=== PATIENT | female | born 1945 | race African-American/Black ===

== ENCOUNTER 2018-09-25 05:49 | Inpatient (IN) | payer OTHER ==
[~2018-09-25] VITALS: Ht 175.3 cm; Wt 107.4 kg
--- NOTE | ~2018-09-25 | PATH ---
[facility] [place] [address] PATHOLOGY RPT PROCEDURE Name: SHARDA JOHNSON Room #: 361-P DIS IN M.R.#: [id number] Admission: 09/25/18 Date of : 41 Discharge: 09/28/18 Report #: [id number] Path Case #: [id number] Note [facility] Accession Number: [id number] TESTS RESULT FLAG UNITS REF RANGE LAB Clinician Provided Cytology Information No. of containers..01 Other (Miscellaneous) Source: [A] 01 RUL BAL DIAGNOSIS: [A] 02 RUL BAL SUSPICIOUS FOR MALIGNANCY. THIS INTERPRETATION INCLUDES EVALUATION OF A CELL BLOCK. NORMAL BRONCHIAL CELLS AND MACROPHAGES ARE PRESENT. PULMONARY MACROPHAGES (DUST CELLS) ARE PRESENT. COMMENT; HIGHLY ATYPICAL CELLS PRESENT SUSPICIOUS FOR MALIGNANCY. THIS CASE WAS ALSO REVIEWED BY DR PRETTY MARIN AND DISCUSSED WITH DR KANWAL CHILEL ON 09/30/2018 AT 3PM. Signed out by: 02 Brandon Galeano MD, Pathologist NPI- [id number] Performed by: 01 Sarwat Linder, Kiln Car Unloader ([facility]) Gross description: 01 10ML, PINK, CLOUDY /LCS FLAG LEGEND: L-Low Normal,H-High Normal,LL-Alert Low,HH-Alert High <-Panic Low,>-Panic High,A-Abnormal,AA-Critical Abnormal Performed at: [address] [place] [address] Rios Sow MD, [address] [address] Lori Copeland MD, Specimen Comment: A courtesy copy of this report has been sent to Specimen Comment: [phone]. Specimen Comment: Report sent to Performed at: [address], [place], [place] [address] MD Rios Sow MD Phone: [phone]
--- NOTE | ~2018-09-25 | EKG ---
[address] [address] ELECTROCARDIOGRAM REPORT Name: SHARDA JOHNSON Room #: 361-P ADM IN M.R.#: [id number] Admission: 09/25/18 Attend Phys: Ludwin Allison MD Discharge: Date of : 41 Report #: [id number] THIS REPORT FOR: //name// 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
--- NOTE | ~2018-09-25 | HC ---
[facility] [place] [place] [address] CONSULTATION Name: SHARDA JOHNSON Room #: 361-P [facility] IN M.R.#: [id number] Admission: 09/25/18 Attend Phys: Ludwin Allison MD Discharge: 09/28/18 Date of : 41 Report #: [id number] THIS REPORT FOR: //name// CC: Ludwin Buciosergei WinklerReece HISTORY OF PRESENT ILLNESS: A 73-year-old black female was admitted through the Emergency Room after a fall at home. A subsequent chest x-ray reveals upper lobe lung mass that was not previously detected. She states that she has not had a chest x-ray for some 3-4 years when she was last an inpatient at [facility]. She is a reformed cigarette smoker, who consumed a half a pack per day for approximately 25 years, stopping 4 years ago. She denies any recent weight loss, cough or hemoptysis. She has no pain or masses that she has detected or adenopathy. PAST MEDICAL HISTORY: Significant for hypertension, diabetes, elevated cholesterol. She had previous TIA. Hysterectomy in 1971. She had carotid stenosis. ALLERGIES: None known. MEDICATIONS: As listed on the MFR. SOCIAL HISTORY: She is a nondrinker. Smoking is noted. FAMILY HISTORY: Negative for lung cancer. REVIEW OF SYSTEMS: Negative except as in the history of present illness. PHYSICAL EXAMINATION: GENERAL: Shows an elderly black female. She is responsive and alert. HEENT: Normocephalic. NECK: Supple. CHEST: Clear. LYMPHATICS: Did not reveal any palpable supraclavicular or axillary lymphadenopathy. CARDIOVASCULAR: Normal S1, S2. ABDOMEN: Obese. There is no organomegaly or mass. EXTREMITIES: No clubbing, cyanosis or edema. NEUROLOGIC: No focal localizing signs. SKIN: Normal turgor. IMAGING: Again, shows the large 6 cm right upper lobe lung mass in a reformed smoker. [facility] [address] [place] [address] CONSULTATION Name: SHARDA JOHNSON Room #: [address] [place] [address] [place] 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 PLAN: The patient agrees and understands the plan to undergo bronchoscopy for tissue diagnosis. Full and further recommendations will be made when these results are known. Thanks for asking us to see her with you in consultation and asking me to participate in her care. <ELECTRONICALLY SIGNED> By: Monie Gaona MD 09/29/18 1224 1211 2224 oMnie Gaona MD /nt
--- NOTE | ~2018-09-25 | SPIROMETRY ---
[facility] [address] [address] SPIROMETRY Name: SHARDA JOHNSON Room #: 361-P [facility] IN .R.#: [id number] Admission: 09/25/18 Attend Phys: Ludwin Allison MD Discharge: 09/28/18 Date of : 41 Report #: [id number] THIS REPORT FOR: //name// >> SPIROMETRY: (BTPS) Height: in cm Weight: lbs kg Exam Date: PRE-RX POST-RX PRED BEST %PRED BEST %PRED %CHG FVC LITERS . . . . . . FEV1 LITERS . . . . . . FEV1/FVC % . . . . . . XAJ56-11% L/Sec . . . . . . PEF L/SEC . . . . . . FEF50/FIF50 UNITLESS . . . . . . >> INTERPRETATION/IMPRESSION: CC: Ludwin Newell Spirometric examination revealed moderately severe airflow obstruction. There was significant bronchodilator response. IMPRESSION: Moderately severe airflow obstruction. <ELECTRONICALLY SIGNED> By: Silviano Adams MD 10/07/18 1757 Silviano Adams MD /nt
--- NOTE | ~2018-09-25 | EKG ---
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: ZULMA : 1945 Requested By: Corey Low Order Number: [id number] MD: Frederick Huber Measurements Intervals [place] Rate: 60 P: 63 CT: 147 QRS: 46 QRSD: 92 T: 36 QT: 456 QTc: 456 Interpretive Statements Sinus rhythm Normal tracing Compared to ECG 10/21/2013 20:19:52 No significant changes Electronically Signed On 09-27-2018 8:57:07 CDT by Frederick Huber [email or web address] <ELECTRONICALLY SIGNED> By: Frederick Huber MD, [facility] 09/27/18 0857 1104 1104 Frederick Huber MD, [facility] /EPI
--- NOTE | ~2018-09-25 | HC ---
[facility] [address] [place] [address] CONSULTATION Name: SHARDA JOHNSON Room #: 361-P [facility] IN Olamide.RJoanna#: [id number] Admission: 09/25/18 Attend Phys: Ludwin Allison MD Discharge: 09/28/18 Date of : 41 Report #: [id number] THIS REPORT FOR: //name// CC: Ludwin Tierneyesa Reece DATE OF SERVICE: 09/27/2018 TYPE OF REPORT: Pulmonary consultation. REFERRING PHYSICIAN: Ludwin Allison M.D. REASON FOR CONSULTATION: Abnormal chest CT. HISTORY OF PRESENT ILLNESS: The patient is a 73-year-old -Algerian female who presents to the Emergency Room following a fall. Chest x-ray and CT chest showed a lung mass. A Pulmonary consultation was requested. The patient has smoked most of her life. She states that she quit about a year ago. She has also been treated for hypertension and history of CVA, on chronic anticoagulation. She was in her usual state of health until the day of admission, the patient was found to be weak and fell at home. She did not hurt herself. She stated that the leg buckled. She was then brought to the Emergency Room. Initial evaluation was grossly unremarkable. CT head was grossly unremarkable. Otherwise, the patient denies any recent chest pain, hemoptysis but denies any recent night sweats, chills or weight loss. CT chest does show evidence of right upper lobe lung mass, in the proximal apical segment with a right paratracheal and superior mediastinal adenopathy. The lung mass abuts the superior posterior part of the chest wall. The lung mass itself measured 6.2 x 5.0 x 5.1 cm in diameter. PAST MEDICAL HISTORY: Notable for hypertension, diabetes, hypercholesterolemia, peripheral artery disease with carotid artery stenosis, hysterectomy, TIA and on chronic anticoagulation. ALLERGIES: None noted. HOME MEDICATIONS: Nifedipine, Coumadin, Lipitor, Actos, Prinivil, Zantac, Aleve and Tylenol. FAMILY HISTORY: Noncontributory. [facility] [address] [address] CONSULTATION Name: SHARDA JOHNSON Room #: 361-P [facility] IN M.R.#: [id number] Admission: 09/25/18 Attend Phys: Ludwin Allison MD Discharge: 09/28/18 Date of : 43 Report #: [id number] SOCIAL HISTORY: The patient smoked one pack to half a pack a day for about 25 years, quit about a year ago. She denies any alcohol use. REVIEW OF SYSTEMS: As mentioned above, otherwise 10-point system review negative. PHYSICAL EXAMINATION: GENERAL: She is awake and alert, in no apparent distress. VITAL SIGNS: Temperature is 36.7 degrees Celsius, pulse is 54, respiratory rate is 18, blood pressure 152/47 mmHg and saturation 100% on room air. HEENT: Normocephalic and atraumatic. NECK: Supple, without lymphadenopathy or thyromegaly. CHEST: Breath sounds are good bilaterally without any rales or wheezes. CARDIOVASCULAR: Normal S1 and S2. No murmurs or gallop. There is no JVD. There is no carotid bruit. Pulses are 2+/4+ bilaterally. ABDOMEN: Soft and nontender. No organomegaly or masses felt. GENITOURINARY: Deferred. RECTAL: Deferred. EXTREMITIES: There is no edema, cyanosis or clubbing. RADIOLOGICAL DATA: CT chest as mentioned above. CT head as mentioned above. Echocardiogram was grossly unremarkable. Pulmonary artery pressure measured 52 mmHg. Mild mitral regurgitation. LABORATORY DATA: Sodium 142, potassium 4.2, chloride 109, CO2 of 21, BUN 23 and creatinine is 1.6. Hemoglobin is 8.0, WBC is 12,300, platelets are normal. INR on admission was 2.6. Troponin was mildly elevated. IMPRESSION: 1. Right upper lobe lung mass, mediastinal adenopathy in this 73-year-old -Algerian female. She has smoked most of her life. She had a recent fall. CT head was grossly unremarkable other than encephalomalacia seen in the right centrum semiovale region. Etiology likely bronchogenic carcinoma. 2. Recent fall, weakness. Neurologic appears to have improved. May be another episode of transient ischemic attack (?), appears to be therapeutic on anticoagulation. 3. Renal insufficiency, question of whether this may be acute or chronic. 4. Diabetes mellitus type 2. 5. History of cerebrovascular accident, on chronic anticoagulation. Coumadin has been on hold for anticipated bronchoscopy. 6. Mildly elevated troponin. Echocardiogram noted. 7. Pulmonary hypertension, likely related to underlying chronic obstructive pulmonary disease. No further workup necessary at this time. RECOMMENDATIONS: We will proceed with diagnostic bronchoscopy once INR is less [address] [address] CONSULTATION Name: ALEXSHARDAJOSEPHINE IVERSON Room #: 361-[facility] IN M.R.#: [id number] Admission: 09/25/18 Attend Phys: Ludwin Allison MD Discharge: 09/28/18 Date of : 41 Report #: [id number] than 1.5. Risks and benefits of bronchoscopy were discussed with the patient. Following our discussion, the patient voices understanding and willing to proceed. Thank you for this consultation. <ELECTRONICALLY SIGNED> By: Silviano Adams MD 09/29/18 1844 1550 0227 Silviano Adams MD /nt
--- NOTE | ~2018-09-25 | 2DMMODE ---
[place] [address] [facility] [place] [address] 2 D/M-MODE ECHOCARDIOGRAM Name: SHARDA JOHNSON Room #: 361-P ADM IN M.R.#: [id number] Admission: 09/25/18 Attend Phys: Ludwin Allison MD Discharge: Date of : 41 Date of Service: 09/26/18 0819 Report #: [id number] THIS REPORT FOR: //name// APPROVED REPORT Study performed: 09/25/2018 11:04:41 EXAM: Comprehensive 2D, Doppler, and color-flow Echocardiogram Patient Location: Bedside Room #: 361 Status: on-call BSA: 2.11 HR: 54 bpm BP: 179/69 mmHg Rhythm: NSR Other Information Study Quality: Good Risk Factors: Cardiac Risk Factors: HTN, Hyperlipidemia, DM Indications Elevated Troponin 2D Dimensions IVSd: 11.07 (7-11mm) LVOT Diam: 19.00 (18-24mm) LVDd: 37.61 mm PWd: 11.26 (7-11mm) Ascending Ao: 28.49 (22-36mm) LVDs: 25.19 (25-40mm) Aortic Root: 27.31 mm LV Single Plane 4CH: 71.25 % LV Single Plane 2CH: 63.23 % Biplane EF: 67.4 % Volumes Left Atrial Volume (Systole) Single Plane 4CH: 65.25 mL Single Plane 2CH: 51.27 mL LA ESV Index: 31.00 mL/m2 Aortic Valve AoV Peak Eladio.: 1.50 m/s AO Peak Gr.: 8.94 mmHg LVOT Max P.79 mmHg LVOT Max V: 0.97 m/s BISMARK Vmax: 1.89 cm2 [facility] [address] [place] [address] 2 D/M-MODE ECHOCARDIOGRAM Name: SHARDA JOHNSON IVERSON Room #: 361-[facility] IN ..#: [id number] Admission: 09/25/18 Attend Phys: Ludwin Allison MD Discharge: Date of : 41 Date of Service: 09/26/18 0819 Report #: [id number] Mitral Valve E/A Ratio: 1.6 MV Decel. Time: 286.41 ms MV E Max Eladio.: 0.79 m/s MV A Eladio.: 0.50 m/s MV PHT: 83.06 ms IVRT: 87.66 ms TDI E/Lateral E': 8.78 E/Medial E': 11.29 Medial E' Eladio.: 0.07 m/s Lateral E' Eladio.: 0.09 m/s Pulmonary Valve PV Peak Eladio.: 1.14 m/s PV Peak Gr.: 5.24 mmHg ME End Vmax: 1.44 m/s Pulmonary Vein P Vein S: 0.46 m/s P Vein A: 0.30 m/s P Vein D: 0.43 m/s P Vein A Dur.: 143.0 msec P Vein S/D Ratio: 1.07 Tricuspid Valve TR Peak Eladio.: 3.37 m/s RAP Estimate: 7.00 mmHg TR Peak Gr.: 45.37 mmHg PA Pressure: 52.00 mmHg Left Ventricle The left ventricle is normal size. There is normal LV segmental wall motion. Borderline concentric left ventricular hypertrophy. Left ventricular systolic function is normal. The left ventricular ejection fraction is within the normal range. LVEF is 65-70%. The left ventricular diastolic function is normal. Right Ventricle The right ventricle is normal size. The right ventricular systolic function is normal. Atria The left atrium size is normal. Right atrium is mildly dilated. Aortic Valve The aortic valve is normal in structure. No aortic regurgitation is present. There is no aortic valvular stenosis. [facility] [address] [place] [address] 2 D/M-MODE ECHOCARDIOGRAM Name: SHARDA JOHNSON Room #: 361-P [facility] IN ..#: [id number] Admission: 09/25/18 Attend Phys: Ludwin Allison MD Discharge: Date of : 41 Date of Service: 09/26/18 0819 Report #: [id number] Mitral Valve The mitral valve is normal in structure. Mild mitral regurgitation. No evidence of mitral valve stenosis. Tricuspid Valve The tricuspid valve is normal in structure. Mild tricuspid regurgitation. Pulmonary artery pressure is 52 mmHg. Pulmonic Valve The pulmonary valve is normal in structure. Moderate to severe pulmonic regurgitation. Great Vessels The aortic root is normal in size. IVC is normal in size and collapses >50% with inspiration. Pericardium There is no pericardial effusion. <Conclusion> The left ventricle is normal size. LVEF is 65-70%. The left ventricular diastolic function is normal. The right ventricle is normal size. The left atrium size is normal. Right atrium is mildly dilated. The aortic valve is normal in structure. Mild mitral regurgitation. Mild tricuspid regurgitation. Pulmonary artery pressure is 52 mmHg. Moderate to severe pulmonic regurgitation. There is no pericardial effusion. <ELECTRONICALLY SIGNED> By: Corey Low MD, FACC 09/26/18818 8 8 Corey Low MD, FACC /INF
--- NOTE | ~2018-09-25 | PATH ---
[facility] [address] [place] [address] PATHOLOGY RPT PROCEDURE Name: SHARDA JOHNSON Room #: 361-P DIS IN M.R.#: [id number] Admission: 09/25/18 Date of : 41 Discharge: 09/28/18 Report #: [id number] Path Case #: [id number] Note [facility] Accession Number: [id number] TESTS RESULT FLAG UNITS REF RANGE LAB Clinician Provided Cytology Information No. of containers..01 Other (Miscellaneous) Source: [A] 01 BRONCH BRUSH DIAGNOSIS: [A] 02 BRONCH BRUSH SUSPICIOUS FOR MALIGNANCY. NORMAL BRONCHIAL CELLS AND MACROPHAGES ARE PRESENT. PULMONARY MACROPHAGES (DUST CELLS) ARE PRESENT. COMMENT; HIGHLY ATYPICAL CELLS PRESENT SUSPICIOUS FOR MALIGNANCY. THIS CASE WAS ALSO REVIEWED BY DR. PRETTY MARIN AND DISCUSSED WITH DR. KANWAL CHILEL ON 09/30/2018 AT 3PM. Signed out by: 02 Brandon Galeano MD, Pathologist NPI- [id number] Performed by: 01 Sarwat Linder, Drug Safety Scientist ([facility]) Gross description: 01 20ML, NONE, CLEAR /LCS FLAG LEGEND: L-Low Normal,H-High Normal,LL-Alert Low,HH-Alert High <-Panic Low,>-Panic High,A-Abnormal,AA-Critical Abnormal Performed at: [address] [place] [address] Rios Sow MD, [address] [address] Lori Copeland MD, Specimen Comment: A courtesy copy of this report has been sent to Specimen Comment: [phone]. Specimen Comment: Report sent to Specimen Comment: A duplicate report has been generated due to demographic updates. Performed at: [address], [place], [place] [address] [address] [address] PATHOLOGY RPT PROCEDURE Name: SHARDA JOHNSON Room #: 361-P [facility] IN M.R.#: [id number] Admission: 09/25/18 Date of : 41 Discharge: 09/28/18 Report #: [id number] Path Case #: [id number] MD Rios Sow ME Phone: [phone]
--- NOTE | ~2018-09-25 | O ---
[facility] [address] [place] [address] OPERATIVE REPORT Name: SHARDA JOHNSON Room #: 361-P [facility] IN M.R.#: [id number] Admission: 09/25/18 Attend Phys: Ludwin Allison MD Discharge: 09/28/18 Date of : 43 Report #: [id number] THIS REPORT FOR: //name// CC: Ludwin Newell MD PROCEDURE: Diagnostic bronchoscopy. CLINICAL HISTORY: A 73-year-old female with right upper lobe lung mass. POSTOPERATIVE DIAGNOSIS: Mild mucosal edema involving the right upper lobe. No evidence of endobronchial lesion seen. DESCRIPTION OF PROCEDURE: Following obtained consent and risks and benefits being explained to the patient, which include infection, bleeding, pneumothorax, the procedure performed in the endoscopy suite. The patient received 2% aerosolized lidocaine along with 2 mg of Versed IV, 50 mcg of fentanyl IV. Then, a flexible fiberoptic bronchoscope was then introduced to the right knee without difficulty. The epiglottis was normal. Vocal cords were normal. Trachea was normal, shiela was normal. The right mainstem bronchus, right middle lobe, right lower lobe was normal. Right upper lobe revealed a mild mucosal edema with mild erythema. No evidence of endobronchial lesion seen or obstruction. The left mainstem bronchus, left upper lobe and left lower lobe was normal. Transbronchial brushing was performed x 4. Bronchoalveolar lavage was performed at the proximal apical segment of the right upper lobe. There was minimal bleeding noted. Otherwise, the patient tolerated the procedure well. Vital signs and saturation throughout the study were within normal range. The bronchoalveolar lavage specimen will be sent for cytology. The cytology brushing slides will be sent for pathology. <ELECTRONICALLY SIGNED> By: Silviano Adams MD 09/28/18 1839 1605 1710 Silviano Adams MD /nt
[~2018-09-25 05:49] MED LIST: ALEVE220 M1 PO; AMLODIPINE BESY10 MG PO; AMLODIPINE BESYL5 MG PO; APAP500 PO; ASPIRIN325 PO; ATORVASTATIN CA10 MG PO; COUMADIN 5 MG TA5 M1 PO; ENOXAPARIN100 MG/11 INJECTION; FISH OIL 1,0001 EAC5 PO; GLUCOPHAGE500 MG PO; GLUMETZA500 PO; HYDROCHLOROTHIA25 M1 PO; IBUPROFEN 400400 M1 PO; LIPITOR20 MG PO; LISINOPRIL-HCT1 EAC1 PO; LISINOPRIL10 MG PO; MULTI VITAMIN1 EACH PO; NORVASC10 MG PO; RANITIDINE HCL300 M1 PO; ULTRAM 50MG TAB50 MG PO
[2018-09-25 05:51] VITALS: BP 178/89
[2018-09-25 06:45] LABS: HEMOGLOBIN 9.4 gm/dL (12.0-15.0); MCH 24.2 pg (26.0-34.0)
[2018-09-25 06:46] LABS: URINE BILIRUBIN NEGATIVE (Negative); URINE BLOOD 1+ (Negative); URINE CLARITY CLEAR; URINE COLOR YELLOW; URINE GLUCOSE-RANDOM* NEGATIVE (Negative); URINE KETONES NEGATIVE (Negative); URINE LEUKOCYTES-REFLEX NEGATIVE (Negative); URINE NITRITE-REFLEX NEGATIVE (Negative); URINE PROTEIN (DIPSTICK) 2+ (Negative); URINE UROBILINOGEN 0.2 E.U./dl (0.2-1.0)
[2018-09-25 06:46] LABS: HEMATOCRIT 29.1 % (37.0-47.0); MCHC 32.3 g/dL (28.0-37.0); MCV 74.9 fL (80.0-100.0); PLATELET COUNT 233 thou/uL (150-400); RBC 3.89 mil/uL (4.20-5.00); RDW 20.4 % (10.5-14.5); WBC 12.3 thou/uL (4.0-11.0)
[2018-09-25 06:49] LABS: CREATININE 1.6 mg/dL (0.6-1.0); POTASSIUM 4.2 mmol/L (3.5-5.1)
[2018-09-25 06:54] LABS: CASTS None Seen /LPF (None Seen); SQUAMOUS 0-3 Few /LPF (0-3)
[2018-09-25 06:55] LABS: BACTERIA-REFLEX None Seen /HPF (None Seen); CRYSTALS None Seen /LPF (None Seen); URINE RBC None Seen /HPF (0-2); URINE WBC-REFLEX 0-5 Rare /HPF (0-5)
[2018-09-25 06:58] LABS: TROPONIN-I 0.23 ng/mL (<0.06)
[2018-09-25 08:05] LABS: INR 2.6; PROTIME 26.2 Seconds (9.3-11.4)
[2018-09-25 08:20] LABS: ABSOLUTE NEUTROPHILS 10.6 thou/uL (1.4-8.2); NUCLEATED RBCS 1 /100WBC
[2018-09-25 08:21] LABS: ANISOCYTOSIS 1+; HYPOCHROMASIA 1+; POIKILOCYTOSIS 1+
[2018-09-25 08:22] LABS: LARGE PLATELETS FEW; OVALOCYTES OCCASIONAL; TARGET CELLS FEW
[2018-09-25 09:25] VITALS: BP 156/54
[2018-09-25 10:00] VITALS: BP 179/69
[2018-09-25] MEDS ORDERED: COUMADIN 5 MG TA5 M1 PO (10:30)
[2018-09-25] MEDS ORDERED: NIFEDIPINE ER60 M1 PO (10:30)
[2018-09-25] MEDS ORDERED: ATORVASTATIN CA40 MG PO (10:31)
[2018-09-25] MEDS ORDERED: PIOGLITAZONE15 MG (10:31)
[2018-09-25] MEDS ORDERED: PRINIVIL20 MG PO (10:32)
[2018-09-25] MEDS ORDERED: ZANTAC 150MG T150 MG PO (10:33)
[2018-09-25] MEDS ORDERED: ALEVE220 MG PO (10:34)
[2018-09-25 12:46] VITALS: BP 152/47
[2018-09-25 18:08] VITALS: BP 163/59
[2018-09-25 19:12] VITALS: BP 146/51
[2018-09-26] VITALS (7 sets, daily range): BP systolic 122–183; BP diastolic 48–74
[2018-09-26 05:11] LABS: HEMATOCRIT 24.4 % (37.0-47.0); MCH 24.7 pg (26.0-34.0); MCHC 32.8 g/dL (28.0-37.0); MCV 75.4 fL (80.0-100.0); RBC 3.23 mil/uL (4.20-5.00); RDW 20.4 % (10.5-14.5); WBC 8.4 thou/uL (4.0-11.0)
[2018-09-26 05:20] LABS: CALCIUM 8.6 mg/dL (8.5-10.1); CREATININE 1.7 mg/dL (0.6-1.0); POTASSIUM 3.9 mmol/L (3.5-5.1)
[2018-09-26 13:58] LABS: INR 2.1; PROTIME 20.9 Seconds (9.3-11.4)
[2018-09-27 03:42] VITALS: BP 145/41
[2018-09-27 03:59] LABS: INR 1.7; PROTIME 17.1 Seconds (9.3-11.4)
[2018-09-27 07:21] VITALS: BP 182/61
[2018-09-27 12:40] VITALS: BP 184/67
[2018-09-27 15:28] VITALS: BP 150/55
[2018-09-27 20:24] VITALS: BP 187/70
[2018-09-28 00:33] VITALS: BP 182/61
[2018-09-28 03:29] VITALS: BP 180/65
[2018-09-28 04:27] LABS: ABSOLUTE RETIC COUNT 0.0658 10^6/uL; OBSERVED RETIC COUNT 2.07 % (0.6-2.6)
[2018-09-28 04:28] LABS: HEMATOCRIT 23.9 % (37.0-47.0); HEMOGLOBIN 7.7 gm/dL (12.0-15.0); MCH 24.2 pg (26.0-34.0); MCHC 32.4 g/dL (28.0-37.0); MCV 74.8 fL (80.0-100.0); RBC 3.19 mil/uL (4.20-5.00); RDW 20.5 % (10.5-14.5); WBC 8.4 thou/uL (4.0-11.0)
[2018-09-28 04:48] LABS: APTT 35.7 Seconds (24.5-32.8); INR 1.3; PROTIME 13.3 Seconds (9.3-11.4)
[2018-09-28 04:56] LABS: CALCIUM 8.7 mg/dL (8.5-10.1); CREATININE 1.6 mg/dL (0.6-1.0); MAGNESIUM 1.9 mg/dL (1.8-2.4); POTASSIUM 4.2 mmol/L (3.5-5.1)
[2018-09-28 05:02] LABS: % SATURATION 16 % (20-39); IRON 30 ug/dL (50-170); TIBC 188 ug/dL (250-450)
[2018-09-28 05:28] LABS: FERRITIN 242 ng/mL (8-252)
[2018-09-28 06:43] VITALS: BP 113/45
[2018-09-28 07:51] VITALS: BP 139/44
[2018-09-28] MEDS ORDERED: ASPIR 8181 MG PO (16:35)
[2018-09-28] MEDS ORDERED: SPIRONOLACTONE25 M1 PO (16:35)
[2018-09-28 16:41] VITALS: BP 139/44
[2018-09-28 16:59] VITALS: BP 139/44
== END 2018-09-28 17:09 | disposition home or self-care (01) | DRG 682 ==
LOC: ER 05:49 → 3W 09:16 → EROBS 09:16 → 3W 09:48
PROVIDERS: Hospitalist; Internal Medicine Cardiovascular Disease; Internal Medicine Pulmonary Disease; Nurse Practitioner Family; Student in an Organized Health Care Education/Training Program
DX: N17.9 Acute kidney failure, unspecified (principal); E43 Unspecified severe protein-calorie malnutrition; R91.8 Other nonspecific abnormal finding of lung field; N18.4 Chronic kidney disease, stage 4 (severe); E78.5 Hyperlipidemia, unspecified; E11.51 Type 2 diabetes mellitus with diabetic peripheral angiopathy without gangrene; R59.0 Localized enlarged lymph nodes; G93.89 Other specified disorders of brain; I27.20 Pulmonary hypertension, unspecified; I48.0 Paroxysmal atrial fibrillation; I65.29 Occlusion and stenosis of unspecified carotid artery; I08.1 Rheumatic disorders of both mitral and tricuspid valves; E11.22 Type 2 diabetes mellitus with diabetic chronic kidney disease; M19.90 Unspecified osteoarthritis, unspecified site; D50.9 Iron deficiency anemia, unspecified; I12.9 Hypertensive chronic kidney disease with stage 1 through stage 4 chronic kidney disease, or unspecified chronic kidney disease; E66.9 Obesity, unspecified; W18.30XA Fall on same level, unspecified, initial encounter; Y93.89 Activity, other specified; Y92.009 Unspecified place in unspecified non-institutional (private) residence as the place of occurrence of the external cause; Y99.8 Other external cause status; Z68.35 Body mass index [BMI] 35.0-35.9, adult; Z86.73 Personal history of transient ischemic attack (TIA), and cerebral infarction without residual deficits; Z90.710 Acquired absence of both cervix and uterus; Z87.891 Personal history of nicotine dependence; Z79.01 Long term (current) use of anticoagulants; Z79.899 Other long term (current) drug therapy; Z82.49 Family history of ischemic heart disease and other diseases of the circulatory system
CPT/HCPCS: 10879